=== PATIENT | female | born 1960 | race Caucasian/White ===

== ENCOUNTER → 2016-06-06 | Outpatient (CLI) | payer OTHER ==
[~2016-06-06] MED LIST: ATOM40CA PO; CARB1CAP11 PO
--- NOTE | 2016-06-06 16:37 | MAMMOGRAPHY REPORT ---
THIS REPORT HAS BEEN AMENDED. BILATERAL DIGITAL SCREENING MAMMOGRAM TOMOSYNTHESIS WITH CAD: 06/06/2016 CLINICAL HISTORY: Routine screening examination. TECHNIQUE: Breast tomosynthesis in addition to standard 2D mammography was performed. Current study was also evaluated with a Computer Aided Detection (CAD) system. COMPARISON: No prior exams were available for comparison. BREAST COMPOSITION: The tissue of both breasts is heterogeneously dense, which may obscure small ma sses. FINDINGS: There are a few benign coarse calcifications in the breasts. There are multiple bilatera l circumscribed subcentimeter masses scattered in the breasts, which is a typically benign mammograp hic pattern. No suspicious spiculated or irregular mass, architectural distortion or cluster of andrew picious microcalcifications is seen. IMPRESSION: ACR BI-RADS CATEGORY 1: NEGATIVE There is no mammographic evidence of malignancy. Prior outside mammograms are currently being reque sted and if obtained they will be reviewed, compared to the current exam to assess for any more subt le changes, and an addendum will be made to this report. Otherwise, a 1 year screening mammogram is recommended. The patient will receive written notification of the results. Approximately 10% of breast cancers are not detected with mammography. A negative mammographic repor t should not delay biopsy if a clinically suggestive mass is present. Tere Segundo M.D. ay/:06/06/2016 16:21:09 Senior Reservations Agent: Magdalene OVALLE)(Lara), [facility] letter sent: Normal 05/08 BI-RADS Code: ACR BI-RADS Category 1: Negative AMENDMENT: 06/07/2016 Tere Segundo M.D. [facility] 07/28[facility]2008, 08/06/2009 and 10/24/2012 [facility] available for review. The breast parenchyma is increasingly fatty replaced compared to the prior outside mammograms. There is stable nodularity in the medial anterior left breast. A stable benig n coarse calcification within the left breast. No new suspicious mass, architectural distortion, de veloping asymmetry or new cluster of suspicious microcalcifications is seen. Advise follow-up in 1 year for next annual screening mammogram. Amended BI-RADS: ACR BI-RADS Category 2: Benign letter sent: Normal 05/08
== END | disposition home or self-care (01) ==
LOC: C.MAMM 08:58
PROVIDERS: ATTEND Nurse Practitioner Family
DX: Z12.31 Encounter for screening mammogram for malignant neoplasm of breast (principal)

== ENCOUNTER → 2017-03-02 | Outpatient (CLI) | payer OTHER, MEDICARE ==
[2017-03-02 17:32] LABS: BASO % 0.6 %; BASO ABS # 0.04 K/uL (0-0.2); COMPLETE YES; HEMATOCRIT 42.5 % (37-47); IG% 0.2 %; LYMPH % 39.8 %; LYMPH ABS # 2.54 K/uL (1.2-3.4); MEAN CELL VOLUME 89.1 fL (80-100); MEAN CORPUSCULAR HEMOGLOBIN 29.8 pg (25-34); MEAN CORPUSCULAR HGB CONC 33.4 g/dl (32-36); MONO % 6.7 %; NEUT % 50.7 %; PLATELET COUNT 276 K/uL (130-400); RED BLOOD COUNT 4.77 M/uL (4.2-5.4); WHITE BLOOD COUNT 6.38 K/uL (4.8-10.8)
[2017-03-02 17:37] LABS: ALT/SGPT 24 U/L (12-78); AMYLASE 61 U/L (25-115); AST/SGOT 15 U/L (15-37); BLOOD UREA NITROGEN 14 mg/dl (7-18); BUN/CREATININE RATIO 14.9 (10-20); CALCIUM 8.7 mg/dl (8.5-10.1); CARBON DIOXIDE 28 mmol/L (21-32); CHLORIDE 104 mmol/L (98-107); CREATININE 0.96 mg/dl (0.60-1.20); GLUCOSE 96 mg/dl (70-99); POTASSIUM 4.1 mmol/L (3.5-5.1); SODIUM 139 mmol/L (136-145)
[2017-03-02 17:40] LABS: ALB/GLOB RATIO 1.4 (0.9-2); ALKALINE PHOSPHATASE 66 U/L (45-117)
== END | disposition home or self-care (01) ==
LOC: C.LABPVFM 15:06
PROVIDERS: ATTEND Nurse Practitioner Family
DX: R10.11 Right upper quadrant pain (principal); F31.9 Bipolar disorder, unspecified

== ENCOUNTER → 2017-04-04 | Outpatient (CLI) | payer OTHER, MEDICARE | END | disposition home or self-care (01) | LOC: C.PAPS 15:25 | PROVIDERS: ATTEND Nurse Practitioner Family | DX: Z01.411 Encounter for gynecological examination (general) (routine) with abnormal findings (principal); R87.610 Atypical squamous cells of undetermined significance on cytologic smear of cervix (ASC-US) ==

== ENCOUNTER 2019-12-04 06:44 | Inpatient (IN) ==
--- NOTE | 2019-12-02 09:13 | Anesthesiology Consultation ---
Date of Service December 02, 2019 Assessment & Plan (1) Encounter for pre-operative examination: Chart Review Chart Review: Acceptable Risk for Surgery (pending preop Covid test results ) and Patient NOT seen in Pre Admission Testing Per 11/26/2019 nursing assessment, patient denies any recent travel. Resides in [facility] and uses PPE. Preop Covid testing 12/01/19= results pending Colonoscopy 11/07/19= Done under MAC- no issues noted History Surgery Operation Date: 12/04/19 08:40 Proposed Procedures p Laparoscopic Sigmoidectomy with Rectopexy - Omid Neri, Height/Weight Height: 5 ft 6 in Weight: 74.843 kg Allergies Allergy/AdvReac Type Severity Reaction Status Date / Time cayenne Allergy Severe severe Verified 11/26/19 10:16 tongue swelling walnut Allergy Severe tongue Verified 11/26/19 10:16 swelling biotin Allergy Intermediate sores on Verified 11/26/19 10:16 skin and head Iodinated Contrast Media Allergy Intermediate ? rash, Verified 11/26/19 10:16 not quite sure kiwi Allergy Intermediate mild Verified 11/26/19 10:16 tongue swelling Sulfa (Sulfonamide Allergy Intermediate heart Verified 11/26/19 10:16 Antibiotics) racing dicyclomine Allergy Mild hives Verified 11/26/19 10:16 lidocaine Allergy Mild Hives Verified 11/26/19 10:16 nickel Allergy Mild rash/swelling Verified 11/26/19 10:16 with jewelry Medications Home Medications Medication Instructions Recorded Confirmed Last Taken carbamazepine 200 mg tablet 200 mg PO BID PRN #360 tab MDD 4 08/08/19 11/26/19 11/06/19 tablets daily PRN albuterol sulfate 2 puff INHALATION Q6H PRN 11/03/19 11/26/19 10/24/19 cyclobenzaprine 10 mg PO TID PRN 11/03/19 11/26/19 11/06/19 cinnamon bark [Cinnamon] 500 mg PO QAM 11/26/19 11/26/19 Unknown diphenhydramine HCl [Benadryl] 25 mg PO QAM 11/26/19 11/26/19 Unknown paroxetine HCl 40 mg PO QAM 11/26/19 11/26/19 Unknown Past Medical History Medical History Allergy-induced asthma inhaler prn Bipolar 1 disorder Fibromyalgia Hearing deficit History of back problems History of colitis History of rectal bleeding Hot flashes reason for paxil IBS (irritable bowel syndrome) Irregular heart beat ? 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 Memory loss short term, d/t 2 suicide attempts (due to overdose) Peripheral neuropathy Past Family History Family History Grandmother (Maternal) Cancer Uterine and stomach Father Myocardial infarction Family history of diabetes mellitus Heart disease Diabetes Daughter Family history of reaction to anesthesia at age 14 (2009 at [facility]) during EGD "stopped breathing", had to stop and remove the tube Mother Family hx colonic polyps Hypertension Denies family history of Ovarian cancer Prostate cancer Breast cancer Colorectal cancer Past Surgical History Surgical History History of section History of colonoscopy 2009 History of dacryocystorhinostomy bilt eyes History of dilatation and curettage History of myomectomy Uterine myomectomy laparoscopic ablation History of tonsillectomy and adenoidectomy "as a child" History of tooth extraction History of wisdom tooth extraction Status post LASIK surgery of both eyes Social History Smoking Status: Never smoker Do You Dip or Chew Tobacco: No Hx Alcohol Use: No Alcohol type: wine alcohol intake frequency: holidays/special occasions only Hx Substance Use: No substance use type: does not use Testing Laboratory Results Laboratory Tests 12/01/19 12/01/19 10:26 10:26 WBC 5.34 Hgb 13.7 Hct 41.6 Plt Count 233 Sodium 141 Potassium 4.8 Chloride 109 H Carbon Dioxide 26 BUN 10 Creatinine 1.06 Glucose 145 H Electrocardiogram Date: 11/27/19 Sinus rhythm with marked sinus arrhythmia at 73 bpm.
[~2019-12-04 06:44] MED LIST changes: -ATOM40CA PO; -CARB1CAP11 PO; +CEFAZOLIN 2000MG 2,000 MG/15 ML SYR IV SCH; +HEPARIN SOD 5,000 UNIT/0.5 ML VIAL SQ SCH; +LACTATED RINGER'S 1,000 ML IV SCH
[2019-12-04] MEDS ORDERED: ONDANSETRON INJ 2 MG/ML 2 ML VIAL ONE ×2 (07:29→09:52)
[2019-12-04] MEDS ORDERED: DEXAMETHASONE SOD INJ 4 MG/ML VIAL ONE (07:29)
[2019-12-04] MEDS ORDERED: PROPOFOL IV EMULSION 10 MG/ML 20 ML VIAL IV ONE (07:29)
[2019-12-04] MEDS ORDERED: NEOSTIGMINE METHYLSULFATE 5 MG/5 ML SYR ONE (07:29)
[2019-12-04] MEDS ORDERED: LIDOCAINE HCL 2% 2 ML VIAL/AMP(20MG/ML) INFIL ONE (07:29)
[2019-12-04] MEDS ORDERED: GLYCOPYRROLATE 0.2 MG/ML VIAL ONE ×2 (07:29→11:14)
[2019-12-04] MEDS ORDERED: MIDAZOLAM HCL 1 MG/ML 2ML VIAL ONE (07:30)
[2019-12-04] MEDS ORDERED: fentaNYL citrate 100 MCG/2 ML VIAL ONE ×2 (07:30→11:22)
[2019-12-04] MEDS ORDERED: LARYING-O-JET KIT (LTA) ONE (07:54)
--- NOTE | 2019-12-04 08:11 | History & Physical Bridge Note ---
Date of Service December 04, 2019 History & Physical Bridge Note I have examined the patient, reviewed the History & Physical and in the interval since the performance of the History & Physical I have noted the following changes of clinical significance: no changes noted
[2019-12-04] MEDS ORDERED: LABETALOL HCL IV 5 MG/ML 20ML IV PRN (08:12)
[2019-12-04] MEDS ORDERED: ONDANSETRON INJ 2 MG/ML 2 ML VIAL IV PRN (08:12)
[2019-12-04] MEDS ORDERED: KETOROLAC 30 MG/ML VIAL IV PRN (08:12)
[2019-12-04] MEDS ORDERED: ATROPINE SULFATE 0.1 MG/ML 10ML SYR IV PRN (08:12)
[2019-12-04] MEDS ORDERED: SUGAMMADEX SODIUM 200 MG/2 ML VIAL IV ONE (11:03)
[2019-12-04] MEDS ORDERED: ROCURONIUM BROMIDE 10 MG/ML 5 ML VIAL IV ONE (11:14)
[2019-12-04] MEDS ORDERED: HYDROmorphone INJ 2 MG/ML SYR/VIAL ONE (11:34)
--- NOTE | 2019-12-04 11:45 | Operative Report ---
PG Post Operative Report Pre & Post Diagnosis Operation Date: 12/04/19 08:30 Pre-Op Diagnosis: Rectal Prolapse, Fecal Incontinency Post-Op Diagnosis: Rectal Prolapse, Fecal Incontinency; umbilical hernia I identified the patient and participated in the time-out.: Yes Procedure Operation Date: 12/04/19 08:30 Actual Procedures p Laparoscopic Low Anterior Resection with Rectopexy, Repair of Umbilical Hernia - Omid Neri DO Surgeon Omid Neri DO Lumber Sorter 2 nd surgeon- Dr. Jorge; 1 st assist: Guanako Tong pa-c Estimated Blood Loss 25 Findings Consistent with Post-Op Diagnosis Specimens sigmoid/rectosigmoid colon Description of Procedure After informed consent was obtained the patient was taken to the operating room and placed in supine position. After successful intubation the arms were tucked and a Soto catheter was placed sterilely. She was then placed in the low lithotomy position in yellowfin stirrups. The entire abdomen and perineum were sterilely prepped and draped in usual fashion. I began with a periumbilical incision. This was made with 11 blade scalpel and carried down through the soft tissues and cautery. We noted an umbilical hernia. We took down the hernia sac and then extended the defect slightly inferiorly. Two #0 Vicryl stay sutures were then placed into the defect of the hernia. Peritoneum was entered using blunt penetration and a finger sweep performed. A 12 mm Watkins trocar was placed and the abdomen was insufflated to 18 mmHg. Laparoscope was inserted and the abdomen examined in 360 degrees. A right lower quadrant 12 mm port and a right mid abdominal 5 mm port and eventually a left lower quadrant 5 mm port were all placed under direct vision. The patient was placed in a steep Trendelenburg position and slightly air planed to the right. The patient had a very large redundant floppy sigmoid colon. She also had a lot of redundant peritoneum from the longstanding prolapse. I began by mobilizing the sigmoid /rectosigmoid and left colon along the white line of Toldt. This was performed using blunt dissection as well as the harmonic scalpel. I carried this down past the peritoneal reflection down onto the rectum itself. Once we had the rectosigmoid fully mobilized I then picked a spot well down below the sacrum and create a small window in the mesentery of the rectum. This was then stapled off using 2 firings of a NELLIE purple cartridge stapler. We were able to identify both the right and left ureter to keep them out of harm's way. Next I marked the proximal sigmoid colon with a marking stitch. I made sure that I would have enough length to perform a tension-free anastomosis. We then used a harmonic scalpel to take down the mesentery of the proximal rectum and sigmoid colon. Once I had the mesentery down up to my marking stitch we then turned off the insufflation and widened the left lower quadrant incision. We carried this down through the fascia. The distal staple line was then used to pull the specimen out through the anterior abdominal wall. We did towel off the abdominal wall prior to doing this. Once we had the marking stitch delivered we placed a bowel clamp and divided the colon and sent off the specimen. We then used sizers to estimate the proper size to be 28 mm. 2-0 silk was used to create a pu rsestring. The anvil was then placed into the end of the colon and the pursestring used to secure it. This was then dunked back down into the abdominal cavity. The fascia was closed using 0 PDS in a running fashion. Next we changed our gloves. We reinsufflated the abdomen. Dr. Jorge then came in for the crucial part of the procedure which involved the anastomosis. After bringing sizers through the rectal stump he brought in the 28 mm handle. I did use the harmonic scalpel to free up any extraluminal fat so that mostly serosa was exposed on the rectal stump. We then brought out the spike just below the staple line. The anvil was then connected to the handle. They were secured together and fired creating a circular anastomosis. The handle was easily removed and both donuts were intact. Next I filled the pelvis with irrigation and the rigid sigmoidoscope was inserted into the rectal stump. Anastomosis was insufflated under water and was in fact airtight. Next I performed a rectopexy. I used 2-0 Tycron to secure the rectal stump to the presacral fascia. I used 3 separate stitches to do this. At the end of this the anastomosis was nice and tension-free. There was no evidence of any ischemia. Certainly no evidence of any leaks. There was adequate hemostasis and I thoroughly irrigated the lower abdomen and pelvis. A 10 flat Mitch-Callejas drain was brought in through 1 of the port sites and placed in the pelvis. It was secured to the skin using 2-0 nylon. The other trochars were removed and the abdomen desufflated. We closed the umbilical hernia fascia with 0 Vicryl in [id number] fashion. The remainder the incisions were thoroughly irrigated. The larger incision was closed using 3-0 Vicryl for deep layers and 4-0 Monocryl for skin. The smaller incisions were closed in 4-0 Monocryl. Dermabond glue was used as a dressing as well as a drain sponge and tape over the drain. The patient was awakened extubated and transferred recovery in stable condition. My physician assistant professor of sociology was present to the entire case. He was instrumental in running the camera as well as retracting throughout my dissection as well as assisting with the anastomosis. I attest to the content of the Intraoperative Record and any orders documented therein. Any exceptions are noted below.
[2019-12-04] MEDS: HYDROmorphone INJ 1 MG/ML SYRINGE IV PRN ×2 (11:51→11:56)
--- NOTE | 2019-12-04 13:03 | Anesthesiology Progress Note ---
Date of Service December 04, 2019 Anesthesia Post Procedure Vital Signs Vital Signs: Temp Pulse Pulse Resp BP BP Pulse Ox 12/04/19 12:40 77 16 113/59 L 98 12/04/19 12:30 81 16 116/59 L 98 12/04/19 12:20 36.6 C 75 16 118/54 L 98 12/04/19 12:10 36.6 C 74 16 112/57 L 98 12/04/19 12:00 77 16 118/57 L 99 12/04/19 11:50 77 16 114/56 L 99 12/04/19 11:40 36.4 C L 80 16 104/47 L 100 12/04/19 07:17 37.3 C 92 H 18 127/82 95 Transfer of Care Handoff Completed per policy Notes Mental Status: alert / awake / arousable Patient Amnestic to Procedure: Yes Nausea / Vomiting: adequately controlled Pain: adequately controlled Airway Patency, RR, SpO2: stable & adequate BP & HR: stable & adequate Hydration State: stable & adequate Anesthetic Complications: no major complications apparent
[2019-12-04] MEDS ORDERED: ALBUTEROL HFA 8 GM INHALER INH PRN (13:09)
[2019-12-04] MEDS ORDERED: HYDROmorphone PCA 30 MG/30 ML IV PRN (13:09)
[2019-12-04] MEDS ORDERED: KETOROLAC TROMETHAMINE 15 MG/ML VIAL IV PRN (13:09)
[2019-12-04] MEDS ORDERED: NALOXONE HCL 0.4 MG/1 ML VIAL/CARP IV PRN (13:09)
[2019-12-04] MEDS: SODIUM CHLORIDE 0.9% 1000ML 1,000 ML IV SCH (13:50)
[2019-12-04] MEDS: LACTATED RINGER'S 1,000 ML IV SCH ×2 (13:51→23:23)
[2019-12-04] MEDS: ACETAMINOPHEN 1,000 MG/100 ML VIAL IV SCH ×2 (14:23→21:22)
[2019-12-04] MEDS: carBAMazepine 200 MG TABLET PO PRN (20:03)
[2019-12-05] MEDS: ACETAMINOPHEN 1,000 MG/100 ML VIAL IV SCH ×3 (05:18→22:16)
[2019-12-05 06:09] LABS: Basophils # (auto) 0.02 K/uL (0-0.2); Basophils % (auto) 0.3 %; Eosinophils # (auto) 0.02 K/uL (0-0.5); Eosinophils % (auto) 0.3 %; Hematocrit (blood only) 37.6 % (37-47); Hemoglobin 11.7 g/dL (12.0-16.0); Immature Granulocytes # (auto) 0.01 K/uL (0.00-0.02); Immature Granulocytes % (auto) 0.1 %; Lymphocytes # (auto) 2.87 K/uL (1.2-3.4); Lymphocytes % (auto) 36.5 %; Mean Corpuscular Hemoglobin 28.6 pg (25-34); Mean Corpuscular Hgb Conc 31.1 g/dL (32-36); Mean Corpuscular Volume 91.9 fL (80-100); Monocytes # (auto) 0.95 K/uL (0.11-0.59); Monocytes % (auto) 12.1 %; Neutrophils % (auto) 50.7 %; Platelet Count 225 K/uL (130-400); RDW Coefficient of Variation 15.4 % (11.5-14.5); RDW Standard Deviation 52.4 fL (36.4-46.3); Red Blood Count 4.09 M/uL (4.2-5.4); White Blood Count 7.87 K/uL (4.8-10.8)
[2019-12-05 06:40] LABS: Calcium 7.9 mg/dl (8.5-10.1); Creatinine Clr Calc Pharmacy 82.9 ml/min; Est GFR (African American) 100.4; Est GFR (Non-African American) 86.6; Potassium 3.9 mmol/L (3.5-5.1)
[2019-12-05] MEDS: carBAMazepine 200 MG TABLET PO PRN (08:18)
[2019-12-05] MEDS: LACTATED RINGER'S 1,000 ML IV SCH ×3 (08:19→23:34)
[2019-12-05] MEDS: PARoxetine HCL 20 MG TAB PO SCH (09:37)
[2019-12-05] MEDS: ENOXAPARIN INJ 40 MG/0.4 ML SYR SQ SCH (09:37)
--- NOTE | 2019-12-05 11:50 | Surgery Progress Note ---
Date of Service December 05, 2019 Assessment & Plan (1) Rectal prolapse: pod 1 laparoscopic low anterior resection doing well so far will d/c renae will start clears sparingly [facility] covering for weekend. Subjective pt seen. doing well/pain manageable with pcs Physical Exam Physical Exam: alert. nad abd: soft. wounds look good. JASPAL serous. Results & Data Vital Signs (Past 12 Hours) Vital Signs Temp Pulse Resp BP Pulse Ox 12/05/19 07:09 36.8 C 65 12 101/56 L 98 12/05/19 02:53 36.7 C 65 16 109/62 98 PG Care Time/CCT Total # of Minutes Spent Total Time Spent with Patient: Total time spent is greater than 50% in coordination of care (as documented) at patient's floor/unit and/or counseling patient: Coding Level of Care Code None Diagnoses Rectal prolapse K62.3
[2019-12-05] MEDS: SODIUM CHLORIDE 0.9% 1000ML 1,000 ML IV SCH (13:33)
[2019-12-06] MEDS: ACETAMINOPHEN 1,000 MG/100 ML VIAL IV SCH ×3 (05:50→20:46)
[2019-12-06] MEDS: PARoxetine HCL 20 MG TAB PO SCH (09:06)
[2019-12-06] MEDS: ENOXAPARIN INJ 40 MG/0.4 ML SYR SQ SCH (09:06)
[2019-12-06] MEDS: LACTATED RINGER'S 1,000 ML IV SCH ×2 (09:42→20:46)
[2019-12-06] MEDS: carBAMazepine 200 MG TABLET PO PRN (10:06)
--- NOTE | 2019-12-06 12:27 | Surgery Progress Note ---
Date of Service December 06, 2019 Assessment & Plan (1) Rectal prolapse: Postoperative day #2 status post low anterior resection with rectopexy She is doing very well We can advance her to a full liquid diet Change from IV to oral analgesia Encouraged ambulation Subjective Postoperative day #2 status post low anterior resection with rectopexy Feels very well Having very little pain Denies nausea and vomiting Tolerating clear liquid diet Passing flatus Rohan put out 120 cc yesterday and 90 cc so far today all serosanguineous She has begun ambulating in the [place] Physical Exam Gastrointestinal (Abdomen): Inspection/Auscultation: normal bowel sounds and + abdominal surgical incision (All are clean, dry and intact); abdomen not distended Percussion/Palpation: + abdomen tender (Mild incisional only) and abdomen soft Results & Data Vital Signs (Past 12 Hours) Vital Signs Temp Pulse Resp BP BP Pulse Ox 12/06/19 11:50 37.2 C 74 20 120/65 96 12/06/19 07:41 36.9 C 56 L 18 92/53 L 96 12/06/19 03:58 36.7 C 60 16 114/66 96
[2019-12-06] MEDS: OXYCODONE/ACETAMINOPHEN 5mg/325mg TAB PO PRN ×3 (13:20→23:34)
[2019-12-06] MEDS: SODIUM CHLORIDE 0.9% 1000ML 1,000 ML IV SCH (14:13)
[2019-12-06] MEDS ORDERED: Nursing to Pharmacy Communication SCH (14:15)
[2019-12-07] MEDS: ONDANSETRON INJ 2 MG/ML 2 ML VIAL IV PRN ×2 (02:20→09:01)
[2019-12-07] MEDS: OXYCODONE HCL IR 5 MG TAB (IMMEDIATE RELEASE) PO PRN ×2 (03:48→09:01)
[2019-12-07] MEDS: ACETAMINOPHEN 1,000 MG/100 ML VIAL IV SCH (05:52)
[2019-12-07] MEDS: ENOXAPARIN INJ 40 MG/0.4 ML SYR SQ SCH (09:01)
[2019-12-07] MEDS: PARoxetine HCL 20 MG TAB PO SCH (09:02)
[2019-12-07] MEDS: carBAMazepine 200 MG TABLET PO PRN (10:31)
--- NOTE | 2019-12-07 11:01 | Surgery Progress Note ---
Date of Service December 07, 2019 Assessment & Plan (1) Rectal prolapse: Postoperative day #3 status post low anterior resection with rectopexy Audible peristalsis has returned however had some nausea Would continue full liquids today Encouraged ambulation Subjective Postoperative day #3 status post low anterior resection with rectopexy Had some mild nausea Had "gas pain" No vomiting Passing some flatus No bowel movement yet Abdominal discomfort is unchanged and mostly incisional Mitch-Callejas had 165 cc out yesterday and 150 cc over the last shift and is all serous Physical Exam Gastrointestinal (Abdomen): Inspection/Auscultation: + abdomen distended (Mild) and normal bowel sounds Percussion/Palpation: + abdomen tender (Incisional only) and abdomen soft Results & Data Vital Signs (Past 12 Hours) Vital Signs Temp Pulse Resp BP Pulse Ox 12/07/19 07:08 36.7 C 66 16 103/63 92 12/06/19 23:12 37.0 C 69 16 128/58 L 96
[2019-12-07] MEDS: PROMETHAZINE HCL 25 MG in SODIUM CHLORIDE 0.9% 50 ML IV PRN (12:03)
[2019-12-07] MEDS: CYCLOBENZAPRINE HCL 10 MG TAB PO PRN (13:32)
[2019-12-07] MEDS ORDERED: ACETAMINOPHEN 500 MG TAB PO PRN (14:09)
[2019-12-07] MEDS ORDERED: FAMOTIDINE 20 MG TAB PO PRN (14:10)
--- NOTE | 2019-12-08 08:56 | Surgery Progress Note ---
Date of Service December 08, 2019 Assessment & Plan (1) Rectal prolapse: POD#4 low anterior resection with rectopexy - patient has been dealing with nausea/vomiting >24hours without much relief with anti-emetics. although abdominal exam is benign will obtain KUB for further evaluation - for now backed patient down to clears; try to limit amount of foot-traffic in the room as possible - otherwise patient denies any pain- she not taking much pain medication, last oxycodone was 9am yesterday, and she had some tylenol around 11pm - JASPAL serousang. 230ccc - she is passing flatus, no BM thus far - will re-evaluate after KUB as above. will ad reglan to regiment. check KUB. awaiting return of bowel fx. keep JASPAL until BM. not ready for d/c yet. Subjective Patient evaluated at bedside. Said she did not have a great weekend, dealing with N/V. Said she had an episode of projectile vomiting yesterday, and has vomited overall at least 4-5x. Last she tried to eat was breakfast yesterday and has since been refusing meal trays. Believes her nausea is attributed to environmental factors such as sensitivity to different perfumes/smells, people walking in and out of the room, and due to the pain medication she has received. Craig some relief with Pepcid. She currently denies any abdominal pain. She is passing flatus, no BM yet. She states that she just wants to return home thinking she'll feel better outside of the hospital. Physical Exam Physical Exam: awake/alert Constitutional: sitting up in bed with emesis basin Gastrointestinal (Abdomen): Inspection/Auscultation: + abdominal surgical incision (c/d/i with dermabond overtop, no sign of infection) and + abdominal surgical drain present (serous); abdomen not distended Percussion/Palpation: abdomen soft; abdomen nontender Results & Data Vital Signs (Past 12 Hours) Vital Signs Temp Pulse Resp BP Pulse Ox 12/08/19 07:54 36.9 C 63 18 154/70 H 92 12/07/19 23:05 37 C 64 16 130/71 92 PG Care Time/CCT Total # of Minutes Spent Total Time Spent with Patient: Total time spent is greater than 50% in coordination of care (as documented) at patient's floor/unit and/or counseling patient: Coding Level of Care Code None Diagnoses Rectal prolapse K62.3
[2019-12-08] MEDS: PARoxetine HCL 20 MG TAB PO SCH (09:00)
[2019-12-08] MEDS: ENOXAPARIN INJ 40 MG/0.4 ML SYR SQ SCH (09:00)
--- NOTE | 2019-12-08 09:23 | XRay Report ---
KUB CLINICAL HISTORY: Nausea and vomiting. Status post lower anterior resection. FINDINGS: 2 AP, portable, supine abdominal radiographs are obtained. No prior studies are available f or comparison at the time of dictation. A surgical drain projects over the lower abdomen. There are d istended and gas-filled loops of small bowel which measure up to 4.5 cm. Gas is also seen within the colon. No evidence of intraperitoneal free air is seen on these supine images. There are no abnormal abdominal calcifications. Suture material and phleboliths are observed in the pelvis. The bony struct ures appear intact. IMPRESSION: 1. A surgical drain projects over the lower abdomen. 2. There are distended and gas-filled loops of small bowel. Gas is also present within the visualized colon. Differential considerations include a postoperative ileus or developing bowel obstruction. Cl inical correlation will be essential. Electronically signed by: Javier Parker M.D. 12/08/2019 9:21 AM
[2019-12-08] MEDS: FAMOTIDINE 20 MG TAB PO SCH ×2 (09:50→20:10)
[2019-12-08] MEDS: ONDANSETRON INJ 2 MG/ML 2 ML VIAL IV PRN ×2 (11:43→20:11)
[2019-12-08] MEDS ORDERED: METOCLOPRAMIDE HCL 10 MG TABLET PO SCH (14:00)
[2019-12-08] MEDS: METOCLOPRAMIDE HCL 5 MG TABLET PO SCH ×2 (15:13→22:06)
[2019-12-09] MEDS: ONDANSETRON INJ 2 MG/ML 2 ML VIAL IV PRN ×2 (06:05→19:31)
[2019-12-09] MEDS: METOCLOPRAMIDE HCL 5 MG TABLET PO SCH ×3 (06:05→21:20)
[2019-12-09] MEDS ORDERED: LACTATED RINGER'S 1,000 ML IV ONE (08:29)
--- NOTE | 2019-12-09 08:37 | Surgery Progress Note ---
Date of Service December 09, 2019 Assessment & Plan (1) Rectal prolapse: POD#5 low anterior resection with rectopexy Patient with ongoing nausea and episodes of vomiting KUB yesterday revealed dilated loops of small bowel, likely postoperative ileus She wishes to refuse any anti-emetics or pain medications. Says she will refuse NGT if indicated Will order IVF bolus and mIVF for now Okay to continue on some sips of clears as tolerates and allow saltine crackers Keep JASPAL drain in until BM Please limit excessive foot traffic in the room as above. pt. seen. awaiting return of bowel fx. she is now passing gas offered NGT for the n/v which would likely help..she want to wait on this. I did discuss with her nurse to try and place NGT if she has any further n/v. will give IVF bolus and restart IVF as she is not able to take much P.O continue to limit narcotics and continue to ambulate. hopefully she will have bowel fx soon. Subjective Patient anxious this AM. Repeats that she wants to go home. She continues with nausea and did have another bout of projectile vomiting this AM. Doesn't find relief with anti-emetics. Denies abdominal pain. Passing gas, no BM. Wants to limit foot traffic in the room. Physical Exam Physical Exam: awake/alert Respiratory: normal respiratory effort Gastrointestinal (Abdomen): Inspection/Auscultation: + abdominal surgical incision (c/d/i with dermabond overtop) and + abdominal surgical drain present (JASPAL Serosancc); abdomen not distended Percussion/Palpation: abdomen soft; abdomen nontender Results & Data Vital Signs (Past 12 Hours) Vital Signs Temp Pulse Resp BP Pulse Ox 12/09/19 07:08 36.8 C 59 L 18 152/71 H 96 12/08/19 22:52 36.8 C 59 L 16 135/67 96 PG Care Time/CCT Total # of Minutes Spent Total Time Spent with Patient: Total time spent is greater than 50% in coordin ation of care (as documented) at patient's floor/unit and/or counseling patient: Coding Level of Care Code None Diagnoses Rectal prolapse K62.3
[2019-12-09] MEDS: ENOXAPARIN INJ 40 MG/0.4 ML SYR SQ SCH (09:44)
[2019-12-09] MEDS: FAMOTIDINE 20 MG TAB PO SCH ×2 (09:45→20:32)
[2019-12-09] MEDS: PARoxetine HCL 20 MG TAB PO SCH (09:46)
[2019-12-09 10:49] LABS: Basophils # (auto) 0.02 K/uL (0-0.2); Basophils % (auto) 0.2 %; Eosinophils # (auto) 0.04 K/uL (0-0.5); Eosinophils % (auto) 0.5 %; Hematocrit (blood only) 38.5 % (37-47); Immature Granulocytes # (auto) 0.01 K/uL (0.00-0.02); Immature Granulocytes % (auto) 0.1 %; Lymphocytes # (auto) 1.89 K/uL (1.2-3.4); Lymphocytes % (auto) 21.6 %; Mean Corpuscular Hemoglobin 29.6 pg (25-34); Mean Corpuscular Hgb Conc 33.8 g/dL (32-36); Mean Corpuscular Volume 87.7 fL (80-100); Mean Platelet Volume 9.7 fL (7.4-10.4); Monocytes # (auto) 0.69 K/uL (0.11-0.59); Monocytes % (auto) 7.9 %; Neutrophils # (auto) 6.08 K/uL (1.4-6.5); Neutrophils % (auto) 69.7 %; Platelet Count 257 K/uL (130-400); RDW Coefficient of Variation 14.8 % (11.5-14.5); RDW Standard Deviation 47.8 fL (36.4-46.3); Red Blood Count 4.39 M/uL (4.2-5.4); White Blood Count 8.73 K/uL (4.8-10.8)
[2019-12-09] MEDS: LACTATED RINGER'S 1,000 ML IV SCH ×2 (10:55→17:48)
[2019-12-09] MEDS: carBAMazepine 200 MG TABLET PO PRN (10:55)
[2019-12-09 11:11] LABS: Albumin Globulin Ratio 0.8 (0.9-2); Albumin Level 2.7 gm/dl (3.4-5.0); BUN Creatinine Ratio 14.3 (10-20); Bilirubin,Total 0.7 mg/dl (0.2-1); Calcium 8.6 mg/dl (8.5-10.1); Creatinine Clr Calc Pharmacy 79.7 ml/min; Est GFR (African American) 95.8; Est GFR (Non-African American) 82.6; Globulin 3.2 gm/dl (2.5-4.0); Potassium 4.1 mmol/L (3.5-5.1); Total Protein 5.9 gm/dl (6.4-8.2)
[2019-12-10] MEDS: ONDANSETRON INJ 2 MG/ML 2 ML VIAL IV PRN ×3 (00:32→16:59)
[2019-12-10] MEDS: LACTATED RINGER'S 1,000 ML IV SCH ×4 (00:33→21:56)
[2019-12-10] MEDS: METOCLOPRAMIDE HCL 5 MG TABLET PO SCH ×3 (05:38→21:24)
[2019-12-10 06:24] LABS: Albumin Level 2.7 gm/dl (3.4-5.0); BUN Creatinine Ratio 15.6 (10-20); Bilirubin,Total 0.7 mg/dl (0.2-1); Calcium 8.8 mg/dl (8.5-10.1); Creatinine Clr Calc Pharmacy 87.6 ml/min; Est GFR (African American) 107.3; Est GFR (Non-African American) 92.6; Potassium 3.7 mmol/L (3.5-5.1)
[2019-12-10 06:26] LABS: Albumin Globulin Ratio 0.8 (0.9-2); Globulin 3.3 gm/dl (2.5-4.0)
--- NOTE | 2019-12-10 08:56 | Surgery Progress Note ---
Date of Service December 10, 2019 Assessment & Plan (1) Rectal prolapse: POD#6 low anterior resection with rectopexy Patient in better spirits this AM She did have some + bowel function overnight, but continues with N/V NGT has been attempted without success Abdominal exam benign Continue current treatment for now, IVF + clears diet/crackers as she tolerates JASPAL serosanguineous as above. 3 bm's overnight...one large/2 smaller. abdomen with +bs's and is non-tender/non-distened. pt unable to tolerate NGT placement last night. labs reviewed will repeat KUB. will repeat fluid bolus to keep up with GI losses. continue conservative management. hopefully bowel function is beginning to return. Subjective Patient says she had a few BM's overnight. Is passing flatus. Still remains with nausea + vomiting. Denies abdominal pain. Multiple attempts made at placing an NGT without success. Physical Exam Physical Exam: awake/alert Gastrointestinal (Abdomen): Inspection/Auscultation: + abdominal surgical incision (c/d/i no evidence of infection) and + abdominal surgical drain present (255cc, serosang.); abdomen not distended Percussion/Palpation: abdomen soft; abdomen nontender Results & Data Vital Signs (Past 12 Hours) Vital Signs Temp Pulse Resp BP BP Pulse Ox 12/10/19 07:11 36.8 C 72 16 144/76 H 95 12/10/19 03:54 37.1 C 60 16 116/59 L 96 12/09/19 22:57 36.7 C 62 16 149/76 H 94 PG Care Time/CCT Total # of Minutes Spent Total Time Spent with Patient: Total time spent is greater than 50% in coordination of care (as documented) at patient's floor/unit and/or counseling patient: Coding Level of Care Code None Diagnoses Rectal prolapse K62.3
[2019-12-10] MEDS: FAMOTIDINE 20 MG TAB PO SCH ×2 (10:06→21:55)
[2019-12-10] MEDS: ENOXAPARIN INJ 40 MG/0.4 ML SYR SQ SCH (10:06)
[2019-12-10] MEDS: PARoxetine HCL 20 MG TAB PO SCH (10:06)
[2019-12-10] MEDS: carBAMazepine 200 MG TABLET PO PRN (10:08)
--- NOTE | 2019-12-10 10:21 | XRay Report ---
XR KUB/Abdomen 1 view CLINICAL HISTORY: n/v post op/ileus COMPARISON STUDY: 12/08/2019 FINDINGS: Surgical drain unchanged in position. Several distended loops of small bowel minimal increa se in the prior study. Slight increase in gas within the descending colon. IMPRESSION: Postoperative ileus slightly increased in prominence from the prior study. ACT 112: Negative or not required by law. The above report was generated using voice recognition software. It may contain grammatical, syntax or spelling errors. Electronically signed by: Eliu Flanagan M.D. 12/10/2019 10:20 AM
[2019-12-10] MEDS ORDERED: SODIUM CHLORIDE 0.9% 1000ML 1,000 ML IV ONE (10:22)
[2019-12-10] MEDS: PROMETHAZINE HCL 25 MG in SODIUM CHLORIDE 0.9% 50 ML IV PRN (19:38)
[2019-12-11] MEDS: LACTATED RINGER'S 1,000 ML IV SCH ×3 (03:37→16:06)
[2019-12-11] MEDS: PROMETHAZINE HCL 25 MG in SODIUM CHLORIDE 0.9% 50 ML IV PRN ×2 (04:08→12:20)
[2019-12-11] MEDS: METOCLOPRAMIDE HCL 5 MG TABLET PO SCH (05:02)
[2019-12-11] MEDS: ENOXAPARIN INJ 40 MG/0.4 ML SYR SQ SCH (07:29)
[2019-12-11] MEDS: FAMOTIDINE 20 MG TAB PO SCH ×2 (08:14→21:38)
[2019-12-11] MEDS: PARoxetine HCL 20 MG TAB PO SCH (08:14)
[2019-12-11 08:23] LABS: BUN Creatinine Ratio 12.8 (10-20); Calcium 8.8 mg/dl (8.5-10.1); Est GFR (African American) 102.1; Est GFR (Non-African American) 88.1; Potassium 3.9 mmol/L (3.5-5.1)
[2019-12-11] MEDS: carBAMazepine 200 MG TABLET PO PRN (09:05)
[2019-12-11] MEDS ORDERED: METOCLOPRAMIDE HCL 5 MG TABLET PO PRN (12:28)
--- NOTE | 2019-12-11 14:49 | Surgery Progress Note ---
Date of Service December 11, 2019 Assessment & Plan (1) Rectal prolapse: pod 7 doing well overall other than prolonged ileus. labs have been good. afebrile. JASPAL looks good. xray c/w ileus will obtain ct scan just to r/o something other issue/etiology had long discussion...pt continues to refuse NGT. pt adamant about wanting to go home but I magaged to convince her to stay. pt needs IVF until ileus resolves. will add scopolamine patch to see if this helps. pt refusing most offered meds. (2) Ileus following gastrointestinal surgery: Subjective Pt seen. very emotional. insisting she wants to go home.....continues to have nausea with emesis. has also had several more bm's. no pain. Physical Exam Physical Exam: alert. nauseated. has small emesis into bucket during our discussion abd: soft. mild distension. JASPAL serous. incisions all look good. Results & Data Vital Signs (Past 12 Hours) Vital Signs Temp Pulse Resp BP Pulse Ox 12/11/19 07:07 36.8 C 64 18 115/63 92 PG Care Time/CCT Total # of Minutes Spent Total Time Spent with Patient: Total time spent is greater than 50% in coordination of care (as documented) at patient's floor/unit and/or counseling patient: Coding Level of Care Code None Diagnoses Rectal prolapse K62.3 Ileus following gastrointestinal surgery K91.89; K56.7
--- NOTE | 2019-12-11 15:32 | CT Scan Report ---
CT SCAN OF THE ABDOMEN AND PELVIS WITHOUT IV CONTRAST CLINICAL HISTORY: Status post colonic resection. Nausea and vomiting. COMPARISON STUDY: KUB dated 12/10/2019. TECHNIQUE: CT scan of the abdomen and pelvis is performed from the lung bases to the proximal femora. Images are reviewed in the axial, sagittal, and coronal planes. IV contrast was not administered for this examination as per the referring clinician. Note that the examination is performed in significa ntly suboptimal fashion lateral and IV contrast. A dose lowering technique was utilized adhering to t he principles of ALARA. CT DOSE: 457.32 mGy.cm FINDINGS: Lung bases: The heart is normal in size and without pericardial effusion. A calcified granuloma is se en in the lingula. There is linear atelectasis seen at the lung bases. No airspace consolidation typi jaiden for pneumonia or pleural effusion is identified. Subcutaneous gas within the left anterior chest wall is likely related to recent surgery. Liver: The unenhanced liver is normal in size, contour, and attenuation. There is no intrahepatic daria iary ductal dilatation. Gallbladder: The gallbladder is distended but otherwise normal in appearance. Spleen: Normal in size and attenuation. Pancreas: Unremarkable. Adrenal glands: Unremarkable. Kidneys: The unenhanced kidneys demonstrate mild cortical atrophy and are without hydronephrosis. The re are no renal calculi identified. There is no evidence of contour deforming renal mass lesion. Abdominal vasculature: The abdominal aorta is normal in course and caliber noting mild atheroscleroti c calcification. Bowel: There is postoperative change from sigmoid colon resection with colocolonic anastomosis. There is a small bowel containing hernia in the right lower quadrant seen on image #288. This causes a hig h-grade small bowel obstruction. The upstream small bowel loops are distended and fluid-filled measur ing up to 4.1 cm diameter. The distal small bowel loops and colon are decompressed. There is no pneum atosis intestinalis or portal venous gas. The surgical drain is located immediately adjacent to the i ncarcerated bowel loop as seen on image #329. The appendix is well-visualized and normal. Peritoneum: No intraperitoneal free air is seen. A surgical drain is present in the pelvis from a rig ht lower quadrant approach. No abdominal ascites is identified. Induration within the ventral abdomin al wall is likely related to recent surgery. Lymphadenopathy: None. Pelvic viscera: The bladder, uterus, and adnexa are normal as imaged. Skeletal structures: No lytic or blastic lesions are seen. IMPRESSION: 1. Significantly suboptimal examination without oral and IV contrast. 2. Findings are consistent with a high-grade small bowel obstruction. This is secondary to an incarce rated loop of small bowel contained within a right lower quadrant hernia. 3. No intraperitoneal free air is seen. There is no pneumatosis intestinalis, portal venous gas, or f ocally thick walled bowel loops identified. 4. Note that the surgical drain closely abuts the incarcerated loop of small bowel in the right lower quadrant abdominal wall. 5. Postoperative change is consistent with distal colonic resection with colocolonic anastomosis. 6. Additional findings as above. ACT 112: Negative or not required by law. Electronically signed by: Javier Parker M.D. 12/11/2019 3:31 PM
[2019-12-11] MEDS ORDERED: SCOPOLAMINE 1.5 MG TDSY TD SCH (16:00)
[2019-12-11] MEDS: CHECK SCOPOLAMINE PATCH PLACEMENT SCH ×2 (16:06→23:52)
--- NOTE | 2019-12-11 16:39 | History & Physical Bridge Note ---
Date of Service December 11, 2019 History & Physical Bridge Note I have examined the patient, reviewed the History & Physical and in the interval since the performance of the History & Physical I have noted the following changes of clinical significance: no changes noted Ct scan today shows SBO at RLQ port site near drain insertion. discussed with pt options/risks ( bleeding/infection/injury to bowel or other organs, dvt, pe, mi,cva etc... questins aswered. will proceed with exploration of RLQ port site with reduction of SBO and repair of port site fascia. pt agreeable.
[2019-12-11] MEDS ORDERED: GLYCOPYRROLATE 0.2 MG/ML VIAL ONE (17:03)
[2019-12-11] MEDS ORDERED: DEXAMETHASONE SOD INJ 4 MG/ML VIAL ONE (17:03)
[2019-12-11] MEDS ORDERED: ROCURONIUM BROMIDE 10 MG/ML 5 ML VIAL IV ONE (17:03)
[2019-12-11] MEDS ORDERED: LIDOCAINE HCL 2% 2 ML VIAL/AMP(20MG/ML) INFIL ONE (17:03)
[2019-12-11] MEDS ORDERED: PROPOFOL IV EMULSION 10 MG/ML 20 ML VIAL IV ONE (17:03)
[2019-12-11] MEDS ORDERED: SUCCINYLCHOLINE CHLORIDE 20 MG/ML 10 ML VIAL IV ONE (17:03)
[2019-12-11] MEDS ORDERED: LARYING-O-JET KIT (LTA) ONE (17:03)
[2019-12-11] MEDS ORDERED: ePHEDrine sulfate 50 MG/ML SYR ONE (17:03)
[2019-12-11] MEDS ORDERED: NEOSTIGMINE METHYLSULFATE 5 MG/5 ML SYR ONE (17:03)
[2019-12-11] MEDS ORDERED: PHENYLEPHRINE 100MCG/ML 5ML SYR ONE (17:03)
[2019-12-11] MEDS ORDERED: ONDANSETRON INJ 2 MG/ML 2 ML VIAL ONE (17:03)
[2019-12-11] MEDS ORDERED: MIDAZOLAM HCL 1 MG/ML 2ML VIAL ONE (17:04)
[2019-12-11] MEDS ORDERED: fentaNYL citrate 100 MCG/2 ML VIAL ONE (17:04)
[2019-12-11] MEDS ORDERED: ePHEDrine sulfate 50 MG/ML AMP IV PRN (17:35)
[2019-12-11] MEDS ORDERED: ONDANSETRON INJ 2 MG/ML 2 ML VIAL IV PRN (17:35)
[2019-12-11] MEDS ORDERED: ATROPINE SULFATE 0.1 MG/ML 10ML SYR IV PRN (17:35)
--- NOTE | 2019-12-11 17:49 | Anesthesiology Consultation ---
Date of Service December 11, 2019 Assessment & Plan (1) Encounter for pre-operative examination: Chart Review Chart Review: Acceptable Risk for Surgery Consults Requested none ASA [id number] Proposed Anesthesia Anesthesia Type: General Risk / Benefits Reviewed With: PT / POA / Parent / Guardian, Accepts Plan and Informed Consent Obtained History Surgery Operation Date: 12/04/19 08:30 Proposed Procedures p Laparoscopic Sigmoidectomy with Rectopexy - Omid Neri DO Operation Date: 12/11/19 09:00 Proposed Procedures p Open Reduction of Incisional Hernia - Omid Neri DO Height/Weight Height: 5 ft 6 in Weight: 75.6 kg Allergies Allergy/AdvReac Type Severity Reaction Status Date / Time cayenne Allergy Severe severe Verified 12/04/19 07:00 tongue swelling walnut Allergy Severe tongue Verified 12/04/19 07:00 swelling biotin Allergy Intermediate sores on Verified 12/04/19 07:00 skin and head Iodinated Contrast Media Allergy Intermediate ? rash, Verified 12/04/19 07:00 not quite sure kiwi Allergy Intermediate mild Verified 12/04/19 07:00 tongue swelling Sulfa (Sulfonamide Allergy Intermediate heart Verified 12/04/19 07:00 Antibiotics) racing dicyclomine Allergy Mild hives Verified 12/04/19 07:00 lidocaine Allergy Mild Hives Verified 12/04/19 07:00 nickel Allergy Mild rash/swelling Verified 12/04/19 07:00 with jewelry Medications Home Medications Medication Instructions Recorded Confirmed Last Taken carbamazepine 200 mg tablet 200 mg PO BID PRN #360 tab MDD 4 08/08/19 12/04/19 12/03/19 10:00 tablets daily PRN albuterol sulfate 2 puff INHALATION Q6H PRN 11/03/19 12/04/19 10/24/19 cyclobenzaprine 10 mg PO TID PRN 11/03/19 12/04/19 11/20/19 12:00 cinnamon bark [Cinnamon] 500 mg PO QAM 11/26/19 12/04/19 11/20/19 10:00 diphenhydramine HCl [Benadryl] 25 mg PO QAM 11/26/19 12/04/19 12/03/19 10:00 paroxetine HCl 40 mg PO QAM 11/26/19 12/04/19 12/03/19 10:00 hydrocodone-acetaminophen [Wall[place]] 1 - 2 tab PO .q4-6h PRN #15 tab 12/05/19 Unknown Active Medications Generic Name Dose Route Start Last Admin Trade Name Freq PRN Reason Stop Dose Admin Acetaminophen 1,000 mg 12/07/19 14:09 12/07/19 22:04 Tylenol PO 01/06/20 14:08 1,000 mg Q8H PRN Administration Pain Carbamazepine 200 mg 12/04/19 13:09 12/11/19 09:05 Tegretol PO 01/03/20 13:08 200 mg BID PRN Administration Bipolar Disorder Cyclobenzaprine HCl 10 mg 12/04/19 13:21 12/07/19 13:32 Flexeril PO 01/03/20 13:20 10 mg TID PRN Administration MUSCLE PAIN Enoxaparin Sodium 40 mg 12/05/19 09:00 12/11/19 07:29 Lovenox SQ 01/04/20 08:59 Not Given QAM SERA Famotidine 20 mg 12/08/19 09:30 12/11/19 08:14 Pepcid PO 01/07/20 09:29 20 mg BID SERA Administration Promethazine HCl 25 mg/ Sodium 51 mls @ 204 mls/hr 12/07/19 11:38 12/11/19 12:43 Chloride IV 01/06/20 11:37 Infused Q6H PRN Infusion Nausea And Vomiting Lactated Ringer's 1,000 mls @ 150 mls/hr 12/09/19 08:30 12/11/19 16:06 Lr IV 01/08/20 08:29 150 mls/hr .Q6H40M SERA Administration Miscellaneous 1 ea 12/11/19 16:00 12/11/19 16:06 Check Scopolamine Patch Placement N/A 01/10/20 15:59 1 ea QS SERA Administration Ondansetron HCl 4 mg 12/04/19 13:09 12/10/19 16:59 Zofran IV 01/03/20 13:08 4 mg Q6H PRN Administration Nausea Oxycodone HCl 5 mg 12/06/19 23:52 12/07/19 09:01 Roxicodone Immediate Rel PO 12/20/19 23:51 5 mg Q4 PRN Administration Pain Paroxetine HCl 40 mg 12/05/19 09:00 12/11/19 08:14 Paxil PO 01/04/20 08:59 40 mg QAM SERA Administration Scopolamine 1.5 mg 12/11/19 16:00 12/11/19 15:59 Transderm-Scop TD 01/10/20 15:59 1.5 mg Q72H SERA Administration NPO Date Last Intake of Fluids: 12/11/19 Time Last Intake of Fluids: 16:00 Last Intake of Fluids Comment: sips of water Date Last Intake of Solids: 12/02/19 Time Last Intake of Solids: 09:00 Last Intake of Solids Comment: has not ate solid foods since 12/03 Past Medical History Medical History Allergy-induced asthma inhaler prn Bipolar 1 disorder Fibromyalgia Hearing deficit History of back problems History of colitis History of rectal bleeding Hot flashes reason for paxil IBS (irritable bowel syndrome) Irregular heart beat ? 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 Memory loss short term, d/t 2 suicide attempts (due to overdose) Peripheral neuropathy Exercise / Class Metabolic Activity II 4-5 Yardwork/Stairs/Walk up hill Past Family History Family History Grandmother (Maternal) Cancer Uterine and stomach Father Myocardial infarction Family history of diabetes mellitus Heart disease Diabetes Daughter Family history of reaction to anesthesia at age 14 (2009 at [facility]) during EGD "stopped breathing", had to stop and remove the tube Mother Family hx colonic polyps Hypertension Denies family history of Ovarian cancer Prostate cancer Breast cancer Colorectal cancer Past Surgical History Surgical History History of section History of colonoscopy 2008 History of dacryocystorhinostomy bilt eyes History of dilatation and curettage History of myomectomy Uterine myomectomy laparoscopic ablation History of tonsillectomy and adenoidectomy "as a child" History of tooth extraction History of wisdom tooth extraction Status post LASIK surgery of both eyes Past Anesthesia History No Hx of Anesthesia Complications and No Family Hx of Anesthesia Complications History of PONV No Hx of PONV and No Hx of Motion Sickness Social History Smoking Status: Never smoker Do You Dip or Chew Tobacco: No Hx Alcohol Use: No Alcohol type: wine alcohol intake frequency: holidays/special occasions only Hx Substance Use: No substance use type: does not use Physical Exam Vital Signs Last Vital Signs Temp 100.8 F H 12/11/19 17:40 Pulse 79 12/11/19 17:40 Resp 16 12/11/19 17:40 BP 131/62 12/11/19 17:40 Pulse Ox 95 12/11/19 17:40 ENMT Mouth: no dentition abnormality Thyromental Distance: > or= 3.5 Finger Breadths Mallampati Class: II Neck normal visual inspection Respiratory normal respiratory effort Auscultation: lungs clear to auscultation bilaterally Cardiovascular Rate/Rhythm: regular rate and regular rhythm Testing Laboratory Results 12/09/19 10:37 12/11/19 07:43 Electrocardiogram Date: 11/27/19 Sinus rhythm with marked sinus arrhythmia at 73 bpm.
[2019-12-11] MEDS ORDERED: CEFAZOLIN 2000MG 2,000 MG/15 ML SYR IV ONE (17:53)
[2019-12-11] MEDS ORDERED: BUPIVACAINE/EPINEPHRINE 0.25% 1:200,000 30 ML VIAL ONE (18:13)
--- NOTE | 2019-12-11 19:26 | Operative Report ---
PG Post Operative Report Pre & Post Diagnosis Operation Date: 12/04/19 08:30 Pre-Op Diagnosis: Rectal Prolapse, Fecal Incontinency Post-Op Diagnosis: Rectal Prolapse, Fecal Incontinency, umbilical hernia Operation Date: 12/11/19 09:00 Pre-Op Diagnosis: Incarcerated Incisional Hernia/SBO Post-Op Diagnosis: Incarcerated Incisional Hernia/SBO I identified the patient and participated in the time-out.: Yes Procedure Operation Date: 12/04/19 08:30 Actual Procedures p Laparoscopic Low Anterior Resection with Rectopexy, (Not Applicable) - Omid Neri DO s Repair of Umbilical Hernia(Not Applicable) - Omid Neri DO Operation Date: 12/11/19 09:00 Actual Procedures p Open Reduction SBO/Repair of Incarcerated Incisional Hernia(Right) - Omid Neri DO Surgeon Omid Neri DO Preforms Laminator n/a Estimated Blood Loss 5 Findings Consistent with Post-Op Diagnosis Specimens none Description of Procedure After informed consent was obtained the patient was taken to the operating room and placed in supine position. After successful intubation the abdomen was sterilely prepped and draped in usual fashion. Prior to prepping the abdomen I had removed the patient's JASPAL drain. I then extended this incision both medially and laterally with a 15 blade scalpel. This was carried down through the soft tissues using cautery. I immediately encountered a loop of small bowel that had incarcerated within the port site incision. I was able to place my finger between the bowel and the fascia. I was unable to reduce the small bowel and therefore had to extend the fascial defect. I primarily extended it laterally. Once I did this I was then able to easily use Berto clamps to pull about 6 inches of small bowel out and exteriorize it. There was no injury to the bowel. The bowel was not infarcted. There was a small hematoma in the mesentery and some mild thickening at the area of incarceration but otherwise it appeared healthy. I was then able to easily reduce this back into the abdominal cavity. No other abnormalities were identified. The corners of the fascial defect were grasped using Allis clamps and elevated. 0 PDS was used in simple interrupted fashion to primarily close the fascial defect. I then thoroughly irrigated the wound. It was closed in multiple layers using 3-0 Vicryl for deep layers and 4-0 Monocryl for skin. Marcaine with epinephrine was injected around the incision for postoperative analgesia and skin glue used as a dressing. The patient was awakened extubated transferred recovery in stable condition. I attest to the content of the Intraoperative Record and any orders documented therein. Any exceptions are noted below.
[2019-12-11] MEDS: fentaNYL citrate 100 MCG/2 ML VIAL IV PRN ×6 (19:35→20:00)
--- NOTE | 2019-12-11 20:03 | Anesthesiology Progress Note ---
Date of Service December 11, 2019 Anesthesia Post Procedure Vital Signs Vital Signs: Temp Pulse Pulse Resp BP BP Pulse Ox 12/11/19 19:55 98.1 F 70 15 138/65 98 12/11/19 19:45 70 16 125/59 L 92 12/11/19 19:35 65 15 128/60 100 12/11/19 19:25 69 15 116/59 L 98 12/11/19 19:17 98.1 F 86 16 131/78 98 12/11/19 17:49 99.5 F 12/11/19 17:40 100.8 F H 79 16 131/62 95 12/11/19 15:48 99.1 F 68 18 147/80 H 97 12/11/19 07:07 98.2 F 64 18 115/63 92 12/10/19 23:18 98.6 F 61 16 116/63 93 Pain Intensity Abdomen: Pain Intensity: 4 Bilateral Hand: Pain Intensity: 6 Transfer of Care Handoff Completed per policy Notes Mental Status: alert / awake / arousable and participated in evaluation Patient Amnestic to Procedure: Yes Nausea / Vomiting: adequately controlled Pain: adequately controlled Airway Patency, RR, SpO2: stable & adequate BP & HR: stable & adequate Hydration State: stable & adequate Anesthetic Complications: no major complications apparent and Pt Satisfied with anesthetic care
[2019-12-11] MEDS: HYDROmorphone INJ 1 MG/ML SYRINGE IV PRN (21:37)
[2019-12-12] MEDS: LACTATED RINGER'S 1,000 ML IV SCH ×4 (02:03→22:34)
[2019-12-12] MEDS: HYDROmorphone INJ 1 MG/ML SYRINGE IV PRN ×4 (02:06→18:49)
[2019-12-12] MEDS ORDERED: IBUPROFEN 200 MG TAB PO PRN (07:33)
[2019-12-12] MEDS ORDERED: HYDROCODONE/ACETAMOPHEN 5/325MG TAB PO PRN ×2 (07:33)
--- NOTE | 2019-12-12 07:41 | Surgery Progress Note ---
Date of Service December 12, 2019 Assessment & Plan (1) Incarcerated incisional hernia: POD#1 open reduction of SBO with repair of incarcerated incisional hernia/ POD#8 low anterior resection Patient is doing well s/p repair of incisional hernia. VSS Denies any nausea/vomiting Continues to pass some loose BM's Tolerating clears, will trial advancing diet today Having some expected pain surrounding RLQ incision. Says she gets nauseated with oxycodone, therefore will offer [place] for a po narcotic option along with po Ibuprofen. She is currently getting relief with IV dilaudid Expect discharge over the next 24 hours as above. doing well. +bm this am. no nausea or emesis. marion liquids/crackers. will advance to full liquids. hopeful d/c tomorrow. Dr. Zhu covering for weekend. (2) Rectal prolapse: Subjective Patient states she had a good night. Denies any further nausea/vomiting since OR yesterday. Says she had a small BM that was loose, but it is starting to become more formed. Admits to some pain around RLQ incision that has been manageable. She feels happy that she is starting to think about food again. Physical Exam Physical Exam: awake/alert Respiratory: normal respiratory effort Gastrointestinal (Abdomen): Inspection/Auscultation: + abdominal surgical incision (c/d/i, well approximated, no signs of infection, dermabond overtop); abdomen not distended Percussion/Palpation: + abdomen tender (some ttp surrounding right lower incision) and abdomen soft Results & Data Vital Signs (Past 12 Hours) Vital Signs Temp Pulse Pulse Resp BP BP Pulse Ox 12/12/19 01:56 36.7 C 86 14 133/73 95 12/11/19 23:20 36.7 C 72 14 108/58 L 94 12/11/19 22:15 36.8 C 76 16 119/69 96 12/11/19 21:24 36.7 C 70 16 127/63 98 12/11/19 20:45 36.9 C 71 16 115/56 L 98 12/11/19 20:15 37.1 C 73 18 117/61 97 12/11/19 19:55 36.7 C 70 15 138/65 98 12/11/19 19:45 70 16 125/59 L 92 12/11/19 19:35 65 15 128/60 100 PG Care Time/CCT Total # of Minutes Spent Total Time Spent with Patient: Total time spent is greater than 50% in coordination of care (as documented) at patient's floor/unit and/or counseling patient: Coding Level of Care Code None Diagnoses Incarcerated incisional hernia K43.0 Rectal prolapse K62.3
--- NOTE | 2019-12-12 08:13 | Anesthesiology Progress Note ---
Date of Service December 12, 2019 Anesthesia Post Procedure Vital Signs Vital Signs: Temp Pulse Pulse Resp BP BP Pulse Ox 12/12/19 01:56 36.7 C 86 14 133/73 95 12/11/19 23:20 36.7 C 72 14 108/58 L 94 12/11/19 22:15 36.8 C 76 16 119/69 96 12/11/19 21:24 36.7 C 70 16 127/63 98 12/11/19 20:45 36.9 C 71 16 115/56 L 98 12/11/19 20:15 37.1 C 73 18 117/61 97 12/11/19 19:55 36.7 C 70 15 138/65 98 12/11/19 19:45 70 16 125/59 L 92 12/11/19 19:35 65 15 128/60 100 12/11/19 19:25 69 15 116/59 L 98 12/11/19 19:17 36.7 C 86 16 131/78 98 12/11/19 17:49 37.5 C 12/11/19 17:40 38.2 C H 79 16 131/62 95 12/11/19 15:48 37.3 C 68 18 147/80 H 97 Notes Mental Status: alert / awake / arousable and participated in evaluation Nausea / Vomiting: adequately controlled Pain: adequately controlled Airway Patency, RR, SpO2: stable & adequate BP & HR: stable & adequate Hydration State: stable & adequate Anesthetic Complications: no major complications apparent
[2019-12-12] MEDS: PARoxetine HCL 20 MG TAB PO SCH (08:50)
[2019-12-12] MEDS: FAMOTIDINE 20 MG TAB PO SCH ×2 (08:50→20:29)
[2019-12-12] MEDS: CHECK SCOPOLAMINE PATCH PLACEMENT SCH ×2 (08:51→16:38)
[2019-12-12] MEDS: ENOXAPARIN INJ 40 MG/0.4 ML SYR SQ SCH (09:00)
[2019-12-12] MEDS: carBAMazepine 200 MG TABLET PO PRN (09:42)
[2019-12-12] MEDS: PROMETHAZINE HCL 25 MG in SODIUM CHLORIDE 0.9% 50 ML IV PRN (18:53)
[2019-12-13] MEDS: CHECK SCOPOLAMINE PATCH PLACEMENT SCH ×2 (00:07→08:39)
[2019-12-13] MEDS: PROMETHAZINE HCL 25 MG in SODIUM CHLORIDE 0.9% 50 ML IV PRN (00:57)
[2019-12-13] MEDS: CYCLOBENZAPRINE HCL 10 MG TAB PO PRN (02:57)
[2019-12-13] MEDS ORDERED: LOPERAMIDE LIQUID 120 ML BOTTLE PO ONE (07:28)
[2019-12-13] MEDS: LACTATED RINGER'S 1,000 ML IV SCH ×2 (08:14→08:15)
[2019-12-13] MEDS: ENOXAPARIN INJ 40 MG/0.4 ML SYR SQ SCH (08:37)
[2019-12-13] MEDS: FAMOTIDINE 20 MG TAB PO SCH (08:37)
[2019-12-13] MEDS: PARoxetine HCL 20 MG TAB PO SCH (08:37)
--- NOTE | 2019-12-15 09:18 | Discharge Summary ---
Date of Service December 15, 2019 Principal Diagnosis Rectal Prolapse Incarcerated Incisional Hernia Discharge Exam awake/alert Gastrointestinal (Abdomen) Inspection/Auscultation: + abdominal surgical incision (c/d/i); abdomen not distended Percussion/Palpation: abdomen soft Discharge Data Allergies Allergy/AdvReac Type Severity Reaction Status Date / Time cayenne Allergy Severe severe Verified 12/04/19 07:00 tongue swelling walnut Allergy Severe tongue Verified 12/04/19 07:00 swelling biotin Allergy Intermediate sores on Verified 12/04/19 07:00 skin and head Iodinated Contrast Media Allergy Intermediate ? rash, Verified 12/04/19 07:00 not quite sure kiwi Allergy Intermediate mild Verified 12/04/19 07:00 tongue swelling Sulfa (Sulfonamide Allergy Intermediate heart Verified 12/04/19 07:00 Antibiotics) racing dicyclomine Allergy Mild hives Verified 12/04/19 07:00 lidocaine Allergy Mild Hives Verified 12/04/19 07:00 nickel Allergy Mild rash/swelling Verified 12/04/19 07:00 with jewelry Procedures Performed Operation Date: 12/04/19 08:30 Actual Procedures p Laparoscopic Low Anterior Resection with Rectopexy, (Not Applicable) - Omid Neri DO s Repair of Umbilical Hernia(Not Applicable) - Omid Neri DO Operation Date: 12/11/19 09:00 Actual Procedures p Open Reduction/Repair of Incarcerated Incisional Hernia(Right) - Omid Neri DO Ordered Studies 12/11/19 15:15 CT abd pelvis wo con Routine Hospital Course (1) Rectal prolapse: This is a 59y F who presented to the [facility] on 12/03 for elective surgery for a history of rectal prolapse. On 7 the patient went to the OR with Dr. Neri for a low anterior resection, rectopexy, and repair of umbilical hernia repair. The patient tolerated the procedure well, see operative report for full details. She was transferred to the surgical nursing floor in stable condition with a JASPAL drain, renae catheter, DITCHING MACHINE OPERATING ENGINEER for pain, and NPO with IVF. POD#1 renae catheter was removed and she was able to void without issues. Clear liquids started. On POD#2 she started passing flatus, diet was advanced to full liquids, and patient transitioned off the DITCHING MACHINE OPERATING ENGINEER to oral and iv pain medication as needed. From POD#3-#6 the patient struggled with ongoing nausea/vomiting. During this time her labs remained stable, she denied any abdominal pain, JASPAL remained seroang., and she was starting to have some liquid stools. Her diet was backed down and she was started on IVF for hydration. KUB's were obtained and revealed signs concerning for post operative ileus. NGT was attempted multiple times without success and anti-emetics were given without much relief. On POD#7 decision was made to obtain a CT scan for further evaluation of patient's N/V which ultimately revealed a small bowel obstruction secondary to a loop of small bowel in the right lower quadrant port site. She was subsequently taken to the OR on 12/11/19 for release of small bowel obstruction and repair of repair of incarcerated incisional hernia and JASPAL drain was removed. Post operatively the patient progressed well from this. Her diet was advanced slowly as tolerated. She continued to pass flatus and have BM's and she had no further episodes of emesis. On 12/12 the patient was deemed stable for discharge to home. She was tolerating a diet, having + bowel function, and incisions c/d/i. She was instructed to follow up in surgical clinic within 1-2 weeks for a postop check. (2) Incarcerated incisional hernia: Total Time Total Time Spent Total Time Spent (In Minutes): 10 Discharge Plan Discharge Items Patient Disposition: Home - Self-Care Reason For Visit: Rectal Prolapse, Fecal Incontinency Discharge Diagnosis: low anterior resection with rectopexy release of small bowel obstruction with repair of incarcerated incisional hernia Activity: Per Instructions section Lifting: No more than 10 pounds Bathing Comment: may shower, no soaking in tubs/pools Exercise/Sports: Wait until after follow-up appointment Driving/Machine Use: do not resume driving while taking narcotics for pain Non-emergency contact: Surgeon Call non-emergency contact if: you have any medication questions, your symptoms worsen, your pain is not controlled, your pain is worsening, your pain is unusual for you, you have a fever, your temperature is above 101.5, your wound has increased redness, your wound has increased drainage and your wound pain has increased Follow-up/Referrals: Lorraine Velazquez CRNP [Primary Care Provider] - Omid Neri, [Surgeon] - (Please call to schedule follow up in clinic within 1-2 weeks) Diet: Low Fiber Addtl Attending Provider Instructions: You may take Tylenol and/or Ibuprofen over the counter if needed for additional pain control. - Tylenol 650mg orally every 6 hours, as needed for pain. Do not exceed more than 3grams of Acetaminophen within 24 hours - Ibuprofen 200mg-400mg orally every 6-8hours, as needed for pain Pending Studies at Discharge: Yes Studies:: surgical pathology Stand-Alone Forms: My [facility], Smoking Cessation Medications and DC Order Prescriptions: New promethazine 25 mg tablet 25 mg PO Q6H PRN (Reason: sedation) Qty: 10 RF: 0 Continued carbamazepine 200 mg tablet 200 mg PO BID MDD 4 tablets daily PRN PRN (Reason: Bipolar Disorder) Qty: 360 RF: 2 diphenhydramine HCl [Benadryl] 25 mg Capsule 25 mg PO QAM RF: 0 cinnamon bark [Cinnamon] 500 mg Capsule 500 mg PO QAM RF: 0 paroxetine HCl 40 mg tablet 40 mg PO QAM RF: 0 cyclobenzaprine 10 mg Tablet 10 mg PO TID PRN (Reason: Muscle Pain) RF: 0 albuterol sulfate 90 mcg/actuation Hfa Aerosol Inhaler 2 puff INHALATION Q6H PRN (Reason: Shortness Of Breath) RF: 0 Discharge Orders: Discharge Order (Routine); Ordered 12/13/19 Ordered By: José Barclay/Other Patient Handouts: Ileus, Small Bowel Obstruction, Types of Colon Resections, Hernia Repair Surgery Admission Data Admit Date/Time: 12/04/19 11:40 Attending Provider: Omid Neri Admit Provider: Omid Neri Primary Care Provider: Lorraine Velazquez Other Interventions: Discharge Summary Assessment (RN) Last Done: 12/13/19 08:16 DC Date/Time DO NOT enter until pt leaves facility: 12/13/19 09:40 Coding Level of Care Code D/C Day Management <30 mins Diagnoses Rectal prolapse K62.3 Incarcerated incisional hernia K43.0
== END 2019-12-13 09:40 | disposition home or self-care (01) | DRG 330 ==
LOC: ASU 06:44 → 3N 11:40

== ENCOUNTER 2023-05-17 08:25 | Observation (INO) ==
--- NOTE | 2023-05-09 09:00 | Anesthesiology Consultation ---
Date of Service May 09, 2023 Assessment & Plan (1) Encounter for pre-operative examination: Plan - lidocaine allergy: I contacted patient as to chart review lidocaine allergy was previously reported though denied per PAT RN call today. She states in the p ast had an ongoing rash and it was previously attributed to lidocaine. She states that rash resolved with prednisone and she has since used topical lidocaine without reaction so she was unsure if it was a true allergy in the past. She states she believes she may have had allergy testing 6 yrs ago, unsure if lidocaine was tested. She states she would prefer to keep lidocaine in allergy list given that it is unknown if she has a true allergic reaction to the medication. Lidocaine is listed in allergies on 05/04/23 [facility] general surgery note, but I also sent message to general surgery office as reminder of lidocaine allergy. - Per music therapy teacher on 05/09/2023: No known infectious disease contacts, current infectious disease symptoms in past 10 days or COVID positive test result in the past 30 days. Chart Review Chart Review: Acceptable Risk for Surgery and Patient NOT seen in Pre Admission Testing History Surgery Operation Date: 05/17/23 08:35 Proposed Procedures p Laparoscopic Recurrent Incisional Hernia Repair with Mesh, Ventral Hernia Repair with Mesh - Omid Neri, DO Height/Weight Height: 5 ft 5 in Weight: 80.739 kg Allergies Allergy/AdvReac Type Severity Reaction Status Date / Time cayenne Allergy Severe severe Verified 05/09/23 07:47 tongue swelling walnut Allergy Severe tongue Verified 05/09/23 07:47 swelling biotin Allergy Intermediate sores on Verified 05/09/23 07:47 skin and head Iodinated Contrast Media Allergy Intermediate ? rash, Verified 05/09/23 07:47 not quite sure kiwi Allergy Intermediate mild Verified 05/09/23 07:47 tongue swelling lidocaine Allergy Intermediate Hives Verified 05/09/23 08:57 promethazine [From Phenergan] Allergy Intermediate Nausea Verified 05/09/23 07:47 Sulfa (Sulfonamide Allergy Intermediate heart Verified 05/09/23 07:47 Antibiotics) racing dicyclomine Allergy Mild hives Verified 05/09/23 07:47 metoclopramide [From Reglan] Allergy Mild nausea Verified 05/09/23 07:47 nickel Allergy Mild rash/swelling Verified 05/09/23 07:47 with jewelry Medications Home Medications Medication Instructions Recorded Confirmed Last Taken albuterol sulfate 90 mcg/actuation 2 puff inhalation Q6H PRN 11/03/19 05/09/23 04/06/20 08:00 aerosol inhaler Shortness Of Breath cinnamon bark 500 mg capsule 500 mg PO QAM 11/26/19 05/09/23 04/06/20 08:00 (Cinnamon) diphenhydramine HCl 25 mg capsule 25 mg PO QAM PRN allergy symptoms 12/24/19 05/09/23 04/07/20 08:00 (Benadryl) paroxetine HCl 40 mg tablet 40 mg PO QAM #90 tabs 05/15/22 05/09/23 Unknown cyclobenzaprine 10 mg tablet 10 mg PO TID PRN Muscle Pain #90 10/03/22 05/09/23 Unknown tabs atorvastatin 10 mg tablet 10 mg PO QAM 05/09/23 05/09/23 Unknown carbamazepine 200 mg tablet 200 mg PO HS Bipolar Disorder 05/09/23 05/09/23 Unknown (Tegretol) Past Medical History Medical History History of COVID-19 2021 - moderate symptoms. no current issues Incarcerated incisional hernia upcoming procedure, general surgery aware per 05/04/23 [place] note Ileus following gastrointestinal surgery (~2019) Rectal prolapse repaired 11/2019 History of back problems chronic neck and lower back pain Memory loss short term, d/t 2 suicide attempts (due to overdose)-NOT RECENTLY History of colitis Hearing deficit Hot flashes reason for paxil Irregular heart beat hx pvc's ? 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 currently not on medication Bipolar 1 disorder Fibromyalgia Irritable bowel syndrome Poor concentration Past Family History Family History Grandmother (Maternal) Cancer Uterine and stomach Father Myocardial infarction Family history of diabetes mellitus Heart disease Diabetes Daughter Family history of reaction to anesthesia at age 14 (2009 at [facility]) during EGD "stopped breathing", had to stop and remove the tube Mother Family hx colonic polyps Hypertension Denies family history of Ovarian cancer Prostate cancer Breast cancer Colorectal cancer Past Surgical History Surgical History History of bowel resection related to the rectal prolapse. History of incisional hernia repair (04/08/20) Open Left Lower Quadrant Incisional Hernia with Mesh Repair Dr. Neri 04/08/2020 History of repair of rectocele History of colonoscopy History of wisdom tooth extraction History of tooth extraction History of tonsillectomy and adenoidectomy "as a child" Status post LASIK surgery of both eyes History of dacryocystorhinostomy bilt eyes History of myomectomy Uterine myomectomy laparoscopic ablation History of dilatation and curettage History of section Social History Smoking Status: Never smoker Do You Dip or Chew Tobacco: No Hx Alcohol Use: No Alcohol type: wine alcohol intake frequency: holidays/special occasions only Hx Substance Use: No substance use type: does not use Lab Results Anesthesia Preop Results Results Anesthesia Widget: WBC 6.08 K/ul (4.8-10.8) 05/08/23 Hgb 15.0 g/dl (12.0-16.0) 05/08/23 Hct 45.9 % (37.0-47.0) 05/08/23 Plt 223 K/uL (130-400) 05/08/23 Na 140 mmol/L (136-145) 05/08/23 K 4.4 mmol/L (3.5-5.1) 05/08/23 Cl 104 mmol/L (98-107) 05/08/23 CO2 30 mmol/L (21-32) 05/08/23 BUN 10 mg/dl (6-23) 05/08/23 Creat 0.92 mg/dl (0.6-1.2) 05/08/23 Glucose Level 85 mg/dl (70-99(Fasting)) 05/08/23 Testing Electrocardiogram Date: 05/08/23 Sinus rhythm with marked sinus arrhythmia, rate 74 bpm
[~2023-05-17 08:25] MED LIST changes: -CEFAZOLIN 2000MG 2,000 MG/15 ML SYR IV SCH; -HEPARIN SOD 5,000 UNIT/0.5 ML VIAL SQ SCH; +ceFAZolin 2000MG 2,000 MG/15 ML SYR IV SCH
[2023-05-17] MEDS ORDERED: MIDAZOLAM HCL 1 MG/ML 2ML VIAL ONE (09:17)
[2023-05-17] MEDS ORDERED: fentaNYL citrate PF 100 MCG/2 ML VIAL ONE ×2 (09:17→12:29)
[2023-05-17] MEDS ORDERED: FLUMAZENIL 0.1 MG/1 ML 10 ML VIAL IV PRN (10:12)
[2023-05-17] MEDS ORDERED: NALOXONE HCL 0.4 MG/1 ML VIAL/CARP IV PRN (10:12)
[2023-05-17] MEDS ORDERED: ONDANSETRON INJ 2 MG/ML 2 ML VIAL IV PRN ×2 (10:12→11:15)
[2023-05-17] MEDS ORDERED: ePHEDrine sulfate 50 MG/ML AMP IV PRN (10:12)
[2023-05-17] MEDS ORDERED: ATROPINE SULFATE 0.1 MG/ML 10ML SYR IV PRN (10:12)
[2023-05-17] MEDS ORDERED: HYDROmorphone INJ 1 MG/ML SYRINGE IV PRN (10:12)
[2023-05-17] MEDS ORDERED: LABETALOL HCL IV 5 MG/ML 20ML IV PRN (10:12)
--- NOTE | 2023-05-17 10:21 | History & Physical Bridge Note ---
Date of Service May 17, 2023 History & Physical Bridge Note I have examined the patient, reviewed the History & Physical and in the interval since the performance of the History & Physical I have noted the following changes of clinical significance: no changes noted
[2023-05-17] MEDS ORDERED: BUPIVACAINE/EPINEPHRINE 0.5% MPF 1:200,000 30 ML VIAL ONE (10:33)
[2023-05-17] MEDS ORDERED: GLYCOPYRROLATE 0.2 MG/ML VIAL ONE (10:46)
[2023-05-17] MEDS ORDERED: ONDANSETRON INJ 2 MG/ML 2 ML VIAL ONE (10:46)
[2023-05-17] MEDS ORDERED: DEXAMETHASONE SOD INJ 4 MG/ML VIAL ONE (10:46)
[2023-05-17] MEDS ORDERED: PROPOFOL IV EMULSION 10 MG/ML 20 ML VIAL IV ONE (10:46)
[2023-05-17] MEDS ORDERED: ROCURONIUM BROMIDE 10 MG/ML 5 ML VIAL IV ONE (10:46)
[2023-05-17] MEDS ORDERED: MoRPHine SULFATE 4 MG/ML 1 ML CARP\\VIAL IV PRN (11:15)
[2023-05-17] MEDS ORDERED: MoRPHine SULFATE 2 MG/ML CARP IV PRN (11:15)
[2023-05-17] MEDS ORDERED: oxyCODONE/ACETAMINOPHEN 5mg/325mg TAB PO PRN ×2 (11:15)
[2023-05-17] MEDS ORDERED: SODIUM CHLORIDE 0.9% 1,000 ML IV SCH (11:15)
[2023-05-17] MEDS ORDERED: SUGAMMADEX SODIUM 200 MG/2 ML VIAL IV ONE (11:45)
[2023-05-17] MEDS ORDERED: KETOROLAC 30 MG/ML VIAL ONE (11:45)
[2023-05-17] MEDS ORDERED: ePHEDrine sulfate 50 MG/5 ML SYR ONE (12:33)
[2023-05-17] MEDS ORDERED: HYDROmorphone INJ 0.5 MG/0.5 ML SYR IV PRN ×2 (12:45)
--- NOTE | 2023-05-17 13:03 | Operative Report ---
PG Post Operative Report Pre & Post Diagnosis Operation Date: 05/17/23 09:55 Pre-Op Diagnosis: (1) Incarcerated ventral hernia (2) Recurrent incisional hernia with incarceration Post-Op Diagnosis: (1) Incarcerated ventral hernia (2) Recurrent incisional hernia with incarceration I identified the patient and participated in the time-out.: Yes Procedure Operation Date: 05/17/23 09:55 Actual Procedures p Laparoscopic Recurrent Left Lower Quadrant Incisional Hernia Repair with Mesh, Laparoscopic Ventral Hernia Repair with Mesh(Left) - Omid Neri DO Surgeon Omid Neri DO Walking Dragline Operator vanessa dietrich Estimated Blood Loss 10 Findings Consistent with Post-Op Diagnosis Specimens none Description of Procedure After informed consent was obtained the patient was taken to the operating room and placed in supine position. After successful intubation the abdomen was sterilely prepped and draped in usual fashion. I began with a left upper quadrant incision. This was carried down through soft tissue using cautery. Anterior fascia was opened using cautery and two #0 Vicryl stay sutures were placed. Peritoneum was elevated using hemostats and incised under direct vision using a Metzenbaum scissor. A finger sweep was performed. A 12 mm Watkins trocar was placed and the abdomen was insufflated to 18 mm Hg. The laparoscope was inserted and the abdomen examined in 360 degrees. There was a large left lower quadrant recurrent hernia. There was some bowel and omentum incarcerated within it. There was also a supraumbilical hernia with some fat incarceration. I placed a right lower quadrant 5 mm trocar a right mid abdominal 12 mm trocar and a right upper quadrant 5 mm trocar. I began by reducing the contents of the left lower hernia. I took down the hernia sac in 360 degrees using the harmonic scalpel. Once I did this there were actually 2 separate hernia defects [id number]. 1 measured approximately 8 to 9 cm the other measuring approximately the 3 cm. After taking down the hernia sac I made a small incision over the central portion of the largest 1. I used a fascial closure device to come through the central portion of defect. A 15 cm circular surgi- mesh had been rolled up and placed into the abdomen through the camera port site. It was unrolled such that the anti-adhesive barrier was facing the bowel. A fascial closure device was used to grasp the central Prolene stitch and pulled the mesh up to the undersurface of the defect. I used a Relia-tack with deep absorbable tacks to secure the mesh into place. I made sure I was able to palpate the tacking device before firing. The mesh laid nice and flat and tension-free and overlapped the defect for several centimeters in all directions. I used the same technique for the smaller hernia just inferior to the larger one. I used a 10 cm circular surgery mesh and used the same tacking device to secure it. I was unable to tack the posterior most portion of the mesh due to it being too close to the iliac vessels and ureter. My attention then turned to the supraumbilical hernia. This measured approximately 3 cm. I had to take down a portion of the falciform ligament using the harmonic scalpel. I then reduced the incarcerated fat and excised this along with the hernia sac using the harmonic. The sac and incarcerated fat were discarded. A 10 cm circular surgi-mesh was placed into the abdomen and unrolled such that the anti- adhesive barrier was facing the bowel. Again the central incision was made over the defect and the fascial closure device used to grasp the central Prolene stitch of the mesh and used to pull it to the undersurface of the defect. Again, the relia-tack with deep tacks was used to secure the mesh. Again it laid nice and flat with no tension. After completion of the procedure no other abnormalities were seen. There was adequate hemostasis. All the trocars were removed. The fascia of the larger trocar was closed using 0-Vicryl. All of the incisions were closed using 4-0 Monocryl. Dermabond glue was used as a dressing. The patient was awakened, extubated, and transferred to recovery in stable condition. My nurse practitioner was present for the entire case and was instrumental in running the camera, providing exposure, assisting with mesh placement, wound closure, and dressing placement. I attest to the content of the Intraoperative Record and any orders documented therein. Any exceptions are noted below.
[2023-05-17] MEDS: fentaNYL citrate PF 100 MCG/2 ML VIAL IV PRN ×4 (13:07→13:25)
--- NOTE | 2023-05-17 13:55 | Anesthesiology Progress Note ---
Date of Service May 17, 2023 Anesthesia Post Procedure Vital Signs Vital Signs: Temp Pulse Pulse Resp BP Pulse Ox O2 Del Method 05/17/23 13:50 70 12 107/50 L 98 Room Air 05/17/23 13:40 36.8 C 73 12 107/65 94 Room Air 05/17/23 13:30 36.8 C 73 13 112/56 L 98 Oxymask 05/17/23 13:20 76 19 127/67 95 Oxymask 05/17/23 13:10 84 21 121/67 99 Oxymask 05/17/23 13:00 86 15 124/64 100 Oxymask 05/17/23 12:53 36.7 C 73 16 112/70 94 Oxymask 05/17/23 09:13 Room Air 05/17/23 09:13 36.5 C 108 H 20 142/90 H 95 Room Air O2 Flow Rate 05/17/23 13:50 0 05/17/23 13:40 0 05/17/23 13:30 2 05/17/23 13:20 4 05/17/23 13:10 4 05/17/23 13:00 6 05/17/23 12:53 6 05/17/23 09:13 05/17/23 09:13 Pain Intensity Left Lower Abdomen: Pain Intensity: 3 Abdomen: Pain Intensity: 4 Transfer of Care Handoff Completed per policy Notes Mental Status: alert / awake / arousable Patient Amnestic to Procedure: Yes Nausea / Vomiting: adequately controlled Pain: adequately controlled Airway Patency, RR, SpO2: stable & adequate BP & HR: stable & adequate Hydration State: stable & adequate Anesthetic Complications: no major complications apparent
[2023-05-17] MEDS ORDERED: ALBUTEROL HFA 8 GM INHALER INH PRN (14:19)
[2023-05-17] MEDS: LACTATED RINGER'S 1,000 ML IV SCH (14:23)
[2023-05-17] MEDS: IBUPROFEN 600 MG TAB PO SCH ×2 (15:03→20:59)
[2023-05-17] MEDS: ACETAMINOPHEN 1,000 MG/100 ML VIAL IV SCH ×2 (15:04→22:40)
[2023-05-17] MEDS: FAMOTIDINE 20 MG TAB PO SCH ×2 (18:11→21:41)
[2023-05-17] MEDS ORDERED: carBAMazepine 200 MG TABLET PO SCH (21:00)
[2023-05-17] MEDS ORDERED: diphenhydrAMINE Capsule 25 MG CAP PO PRN (21:21)
[2023-05-18] MEDS: IBUPROFEN 600 MG TAB PO SCH ×2 (03:04→08:24)
[2023-05-18] MEDS: LACTATED RINGER'S 1,000 ML IV SCH (03:04)
[2023-05-18] MEDS: ACETAMINOPHEN 1,000 MG/100 ML VIAL IV SCH (06:28)
[2023-05-18 07:11] LABS: Basophils # (auto) 0.02 K/uL (0.00-0.20); Basophils % (auto) 0.3 %; Eosinophils # (auto) 0.03 K/uL (0.00-0.50); Eosinophils % (auto) 0.4 %; Hematocrit (blood only) 34.3 % (37.0-47.0); Hemoglobin 11.3 g/dl (12.0-16.0); Immature Granulocytes # (auto) 0.01 K/uL (0.01-0.20); Immature Granulocytes % (auto) 0.1 %; Lymphocytes # (auto) 3.15 K/uL (1.20-3.40); Lymphocytes % (auto) 40.9 %; Mean Corpuscular Hemoglobin 29.4 pg (25.0-34.0); Mean Corpuscular Hgb Conc 32.9 g/dL (32.0-36.0); Mean Corpuscular Volume 89.1 fL (80.0-100.0); Mean Platelet Volume 10.4 fL (9.4-12.4); Monocytes # (auto) 0.79 K/uL (0.11-0.59); Monocytes % (auto) 10.3 %; Platelet Count 174 K/uL (130-400); RDW Coefficient of Variation 12.5 % (11.5-14.5); RDW Standard Deviation 40.3 fL (36.4-46.3); Red Blood Count 3.85 M/uL (4.20-5.40)
[2023-05-18 07:29] LABS: Calcium 8.2 mg/dl (8.6-10.3); Potassium 3.8 mmol/L (3.5-5.1)
[2023-05-18 07:35] LABS: BUN Creatinine Ratio 14.6 (10-20); Creatinine Clr Calc Pharmacy 59.2 ml/min; Est GFR (Non-African American) 57.8 ml/min
--- NOTE | 2023-05-18 07:38 | Surgery Progress Note ---
Date of Service May 18, 2023 Assessment & Plan (1) Recurrent incisional hernia with incarceration: Plan: POD#1 laparoscopic ventral hernia repair with mesh x2 WBC 7, Hbg 11, Vitals stable Pain controlled, diet tolerated Incisions c/d/i, wearing abdominal binder Dispo instructions reviewed, likely plan for discharge to home today and f/u in clinic with Dr. Neri in 2 weeks as above. doing great. ok for d/c. instructions given. Admission and Anticipated Discharge Date Admission Date: May 17, 2023 Subjective Patient is feeling well. Pain is controlled. Tolerated a diet yesterday. Offers no complaints this AM. Physical Exam Physical Exam: awake/alert, no distress Gastrointestinal (Abdomen): Inspection/Auscultation: + abdominal surgical incision (c/d/i, no signs of infection, mild ecchymosis to R lateral incision); abdomen not distended Percussion/Palpation: + abdomen tender (mild hermann incisional discomfort to palpation) and abdomen soft; no guarding Results & Data Vital Signs (Past 12 Hours) Vital Signs Temp Pulse Resp BP Pulse Ox O2 Del Method 05/18/23 07:29 36.6 C 62 16 110/54 L 92 Room Air 05/18/23 03:13 36.7 C 66 18 103/56 L 97 Room Air 05/18/23 00:06 36.7 C 72 20 122/67 95 Room Air PG Care Time/CCT Total # of Minutes Spent Total Time Spent with Patient: Total time spent is greater than 50% in coordination of care (as documented) at patient's floor/unit and/or counseling patient: Coding Level of Care Code 96937 Post Operative Follow-Up Diagnoses Recurrent incisional hernia with incarceration K43.0
[2023-05-18] MEDS: FAMOTIDINE 20 MG TAB PO SCH (08:24)
[2023-05-18] MEDS ORDERED: ATORVASTATIN 10 MG TAB PO SCH (09:00)
[2023-05-18] MEDS ORDERED: PARoxetine HCL 20 MG TAB PO SCH (09:00)
== END 2023-05-18 10:14 | disposition home or self-care (01) ==
LOC: ASU 08:25 → 3N 08:25